=== PATIENT | female | born 1990 | race Caucasian/White ===

== ENCOUNTER 2018-01-13 12:41 | Inpatient (IN) | payer MEDICAID ==
[2018-01-13] MEDS: LACTATED RINGER'S 1,000 ML IV ×3 (01:51→21:34)
[2018-01-13] MEDS ORDERED: MISOPROSTOL 200 MCG TAB PR (13:00)
[2018-01-13] MEDS ORDERED: OXYTOCIN 30 UNITS/LR 500 ML IV ×2 (13:00→14:44)
[2018-01-13] MEDS ORDERED: CLINDAMYCIN 900 MG INJ IM (13:00)
[2018-01-13] MEDS ORDERED: CARBOPROST 250 MCG INJ IM (13:00)
[2018-01-13] MEDS: CLINDAMYCIN 900 MG/D5W (PMX) 50 ML IVPB (13:00)
[2018-01-13 13:17] LABS: ADD MAN DIFF? NO
[2018-01-13 13:20] LABS: WHITE BLOOD COUNT 7.1 10^3/ul (4.8-10.8)
[2018-01-13 13:20] LABS: BASOPHILS % 0.6 % (0.0-2.0); EOSINOPHILS # 0.1 10^3/ul (0.0-0.5); EOSINOPHILS % 1.7 % (0.0-7.0); HEMOGLOBIN 10.3 g/dl (12.0-16.0); IMMATURE GRANS #M 0.04 10^3/ul; IMMATURE GRANS % (M) 0.6 %; LYMPHOCYTES % 28.1 % (15.0-51.0); MEAN CORPUSCULAR HGB CONC 32.2 g/dl (32.0-37.0); MEAN CORPUSCULAR VOLUME 74.4 fl (82.0-101.0); MEAN PLATELET VOLUME 10.2 fl (7.4-10.4); MONOCYTE # 0.5 10^3/ul (0.3-0.9); MONOCYTES % 7.5 % (0.0-11.0); NEUTROPHIL # 4.4 10^3/ul (1.6-7.5); NEUTROPHILS % 61.5 % (39.0-77.0); PLATELET COUNT 296 10^3/UL (140-415); RED CELL DISTRIBUTION WIDTH 15.6 % (11.5-14.5)
[2018-01-13] MEDS ORDERED: LANOLIN 7 GM TUBE TOP (13:30)
[2018-01-13 13:41] LABS: INR 0.94; PARTIAL THROMBOPLASTIN TIME 24.7 Sec (25.0-35.0); PROTIME 12.7 Sec (11.9-14.9)
[2018-01-13 14:15] LABS: HEPATITIS B SURFACE ANTIGEN NEGATIVE (NEGATIVE)
[2018-01-13] MEDS ORDERED: BUPIVACAINE 0.75%/DEXT (SPINAL) 2 ML INJ (14:25)
[2018-01-13] MEDS ORDERED: morphine SULFATE/PF (10 MG/10 ML) INJ (14:25)
[2018-01-13] MEDS ORDERED: FENTAnyl 50 MCG/ML VIAL (14:25)
[2018-01-13] MEDS ORDERED: ONDANSETRON 4 MG INJ (14:44)
[2018-01-13] MEDS ORDERED: DEXAMETHASONE 4 MG/ML 1 ML INJ (14:45)
[2018-01-13 16:06] LABS: RAPID PLASMA REAGIN NONREACTIVE (NR)
[2018-01-13] MEDS: OXYTOCIN 30 UNITS/LR 500 ML IV (16:29)
[2018-01-13] MEDS: KETOROLAC 30 MG INJ IV ×2 (16:33→20:55)
[2018-01-13] MEDS ORDERED: ONDANSETRON 4 MG INJ IV (17:00)
[2018-01-13] MEDS ORDERED: NALOXONE (0.4 MG/ML) INJ IV (17:00)
[2018-01-13] MEDS ORDERED: HYDROmorphONE 0.5 MG/0.5 ML SYG IV (17:00)
[2018-01-13] MEDS ORDERED: ZOLPIDEM 5 MG TAB PO (17:00)
[2018-01-13] MEDS: METHYLERGONOVINE 0.2 MG INJ IM (17:04)
[2018-01-13] MEDS: HYDROmorphONE 0.5 MG/0.5 ML SYG IV (17:08)
[2018-01-13] MEDS: MISOPROSTOL 200 MCG TAB PR ×2 (17:23→17:38)
[2018-01-13] MEDS: SENNA/DOCUSATE NA (8.6MG/50MG) TAB PO (20:43)
[2018-01-13] MEDS: DIPHENHYDRAMINE 50 MG INJ IV (21:46)
[2018-01-14] MEDS: KETOROLAC 30 MG INJ IV ×3 (03:07→14:58)
[2018-01-14 03:32] LABS: ADD MAN DIFF? NO
[2018-01-14 04:11] LABS: BASOPHILS % 0.3 % (0.0-2.0); EOSINOPHILS % 0.1 % (0.0-7.0); HEMATOCRIT 21.7 % (37.0-47.0); IMMATURE GRANS #M 0.05 10^3/ul; IMMATURE GRANS % (M) 0.4 %; LYMPHOCYTES # 3.1 10^3/ul (0.8-2.9); MEAN CORPUSCULAR HGB CONC 32.3 g/dl (32.0-37.0); MEAN CORPUSCULAR VOLUME 74.3 fl (82.0-101.0); MONOCYTES % 8.2 % (0.0-11.0); NEUTROPHIL # 7.7 10^3/ul (1.6-7.5); PLATELET COUNT 252 10^3/UL (140-415); RED BLOOD COUNT 2.92 10^6/ul (4.20-5.40); RED CELL DISTRIBUTION WIDTH 15.9 % (11.5-14.5)
[2018-01-14 04:11] LABS: WHITE BLOOD COUNT 11.8 10^3/ul (4.8-10.8)
[2018-01-14] MEDS: LACTATED RINGER'S 1,000 ML IV ×3 (04:23→21:15)
[2018-01-14] MEDS: SENNA/DOCUSATE NA (8.6MG/50MG) TAB PO ×2 (08:57→21:29)
[2018-01-14 09:19] LABS: ADD MAN DIFF? NO
[2018-01-14 09:22] LABS: ABNORMAL IP MESSAGE 1; BASOPHILS % 0.3 % (0.0-2.0); EOSINOPHILS # 0.1 10^3/ul (0.0-0.5); EOSINOPHILS % 0.5 % (0.0-7.0); HEMATOCRIT 21.5 % (37.0-47.0); IMMATURE GRANS #M 0.05 10^3/ul; IMMATURE GRANS % (M) 0.5 %; LYMPHOCYTES # 2.9 10^3/ul (0.8-2.9); LYMPHOCYTES % 29.3 % (15.0-51.0); MEAN CORPUSCULAR HEMOGLOBIN 23.2 pg (29.0-33.0); MEAN CORPUSCULAR HGB CONC 31.2 g/dl (32.0-37.0); MEAN CORPUSCULAR VOLUME 74.4 fl (82.0-101.0); MEAN PLATELET VOLUME 10.8 fl (7.4-10.4); MONOCYTE # 0.8 10^3/ul (0.3-0.9); MONOCYTES % 7.6 % (0.0-11.0); NEUTROPHIL # 6.1 10^3/ul (1.6-7.5); NEUTROPHILS % 61.8 % (39.0-77.0); PLATELET COUNT 226 10^3/UL (140-415); RED BLOOD COUNT 2.89 10^6/ul (4.20-5.40); RED CELL DISTRIBUTION WIDTH 15.7 % (11.5-14.5)
[2018-01-14 09:22] LABS: WHITE BLOOD COUNT 9.9 10^3/ul (4.8-10.8)
[2018-01-14 09:32] LABS: POSITIVE DIFF @See below
[2018-01-14 09:34] LABS: HEMOGLOBIN 6.7 g/dl (12.0-16.0)
[2018-01-14 09:35] LABS: PATH REVIEW? YES
[2018-01-14] MEDS: FERROUS SULFATE (EC) 325 MG TAB PO ×2 (10:24→21:29)
[2018-01-14] MEDS: HYDROmorphONE 0.5 MG/0.5 ML SYG IV (12:09)
[2018-01-14] MEDS: IBUPROFEN 600 MG TAB PO ×2 (17:41→23:36)
[2018-01-14] MEDS: OXYCODONE/ACETAMINOPHEN (5/325) TAB PO (18:53)
[2018-01-14 20:16] LABS: ADD MAN DIFF? NO
[2018-01-14 20:17] LABS: BASOPHILS % 0.4 % (0.0-2.0); EOSINOPHILS # 0.1 10^3/ul (0.0-0.5); EOSINOPHILS % 1.4 % (0.0-7.0); HEMATOCRIT 23.3 % (37.0-47.0); HEMOGLOBIN 7.5 g/dl (12.0-16.0); IMMATURE GRANS #M 0.06 10^3/ul; IMMATURE GRANS % (M) 0.7 %; LYMPHOCYTES # 2.9 10^3/ul (0.8-2.9); LYMPHOCYTES % 32.2 % (15.0-51.0); MEAN CORPUSCULAR HEMOGLOBIN 24.4 pg (29.0-33.0); MEAN CORPUSCULAR HGB CONC 32.2 g/dl (32.0-37.0); MEAN CORPUSCULAR VOLUME 75.6 fl (82.0-101.0); MEAN PLATELET VOLUME 10.4 fl (7.4-10.4); MONOCYTE # 0.7 10^3/ul (0.3-0.9); MONOCYTES % 7.9 % (0.0-11.0); NEUTROPHIL # 5.2 10^3/ul (1.6-7.5); NEUTROPHILS % 57.4 % (39.0-77.0); PLATELET COUNT 242 10^3/UL (140-415); RED BLOOD COUNT 3.08 10^6/ul (4.20-5.40); RED CELL DISTRIBUTION WIDTH 15.6 % (11.5-14.5)
[2018-01-14] MEDS: DOCUSATE SODIUM 100 MG CAP PO (21:29)
[2018-01-14] MEDS: POLYSACCHARIDE IRON COMPLEX CAP PO (21:29)
[2018-01-15] MEDS: OXYCODONE/ACETAMINOPHEN (5/325) TAB PO ×4 (02:32→18:33)
[2018-01-15] MEDS: IBUPROFEN 600 MG TAB PO ×3 (05:45→17:29)
[2018-01-15] MEDS: DOCUSATE SODIUM 100 MG CAP PO ×2 (09:13→21:30)
[2018-01-15] MEDS: FERROUS SULFATE (EC) 325 MG TAB PO ×2 (09:13→21:30)
[2018-01-15] MEDS: SENNA/DOCUSATE NA (8.6MG/50MG) TAB PO ×2 (09:13→21:30)
[2018-01-15] MEDS: POLYSACCHARIDE IRON COMPLEX CAP PO ×2 (09:14→21:30)
[2018-01-15] MEDS: NA PHOSPHATE/BIPHOS 133 ML ENEMA PR (21:31)
[2018-01-16] MEDS: IBUPROFEN 600 MG TAB PO ×3 (00:02→12:00)
[2018-01-16] MEDS: FERROUS SULFATE (EC) 325 MG TAB PO (08:57)
[2018-01-16] MEDS: POLYSACCHARIDE IRON COMPLEX CAP PO (08:57)
[2018-01-16] MEDS: DOCUSATE SODIUM 100 MG CAP PO (08:57)
[2018-01-16] MEDS: OXYCODONE/ACETAMINOPHEN (5/325) TAB PO ×2 (08:57→14:37)
[2018-01-16] MEDS: SENNA/DOCUSATE NA (8.6MG/50MG) TAB PO (08:57)
[2018-01-16] MEDS: MEASLES,MUMPS,RUBELLA VACCINE INJ SC* (08:58)
[2018-01-16] MEDS: DIPHTH/TET/ACEL PERTUSS (ADULT) 0.5 ML VIAL IM* (08:58)
== END 2018-01-16 20:18 | disposition home or self-care (01) | DRG 766 ==
LOC: L-D 12:41 → PP1 20:29
PROVIDERS: Specialist
PROC: 10D00Z1 Extraction of Products of Conception, Low, Open Approach (ICD-10-PCS; principal; 2018-01-13 14:00)
PROC: 0UB70ZZ Excision of Bilateral Fallopian Tubes, Open Approach (ICD-10-PCS; 2018-01-13 14:00)
DX: O34.211 Maternal care for low transverse scar from previous cesarean delivery (principal); Z3A.39 39 weeks gestation of pregnancy; Z37.0 Single live birth; Z30.2 Encounter for sterilization
CPT/HCPCS: 85025; 85610; 85730; 86592; 86850; 86900; 86901; 87340; 88302; 99464